=== PATIENT | male | born 1960 | race Caucasian/White ===

== ENCOUNTER → 2018-10-17 | Outpatient (CLI) | payer BC ==
--- NOTE | 2018-10-17 11:54 | PCVCIMAG ---
EXAM: BILATERAL CAROTID DUPLEX INDICATION: Carotid bruit. FINDINGS: Doppler Measurements (centimeters per second): RIGHT: Peak CCA-76, Peak ECA-86, Diastolic ICA-13, Peak ICA-56, ICA/CCA Ratio-0.7. LEFT: Peak CCA-87, Peak ECA-52, Diastolic ICA-25, Peak ICA-66, ICA/CCA Ratio-0.8. RIGHT CAROTID: The carotid bulb has no significant plaque. The proximal internal carotid artery shows no significant stenosis. The common carotid artery shows no significant stenosis. The external carotid artery shows no significant stenosis. LEFT CAROTID: The carotid bulb has no significant plaque. The proximal internal carotid artery shows no significant stenosis. The common carotid artery shows no significant stenosis. The external carotid artery shows no significant stenosis. Antegrade flow in both vertebral arteries. IMPRESSION: No significant stenosis of the right internal carotid artery with no significant plaque. No significant stenosis of the left internal carotid artery with no significant plaque. LOC:[place] [id number]
--- NOTE | 2018-10-17 13:09 | PCVCIMAG ---
APPROVED REPORT Study performed: 10/17/2018 09:19:49 Exam: Stress Echocardiogram Indication: Chest pain on exertion, elevated calcium score>400, strong fam hx early cad Patient Location: Echo lab Stress Nurse: Cheryl Mack RN Status: routine Ht: 5 ft 10 in HR: 68 bpm BP: 122/66 mmHg Rhythm: NSR Procedure The patient underwent an Exercise Stress Test using the Kareem Protocol. Blood pressure, heart rate, and EKG were monitored. An Echocardiogram was performed by automatic equipment technician in four stages in quad fashion. At peak stress, four selected images were obtained and placed side by side with resting images for comparison. Stress Test Details Stress Test: Exercise stress testing was performed using a Kareem protocol. HR Resting HR: 68 bpmMax Heart Rate (APMHR): 162 bpm Max HR Achieved: 142 bpmTarget HR (85% APMHR): 137 bpm % of APMHR: 87 Recovery HR: 85 bpm HR response to stress: Normal HR response to stress BP Resting BP: 122/66 mmHg Max BP: 160/80 mmHg Recovery BP: 138/74 mmHg BP response to stress: Normal blood pressure response to stress. ECG Resting ECG: Sinus Rhythm Stress ECG: Sinus Rhythm ST Change: Normal Arrhythmia: None Recovery ECG: Sinus Rhythm Recovery ST Change: Normal Recovery Arrhythmia: None Clinical Reason for Termination: Maximal effort, Chest pain/Anginal equivalent Stress Symptoms: Chest pain/pressure with exertion Exercise duration: 12 min 59 sec Highest Stage Achieved: Stage 5: 5.0 mph at 18% grade. Exercise capacity: 17 METs Overall Exercise Capacity for Age: Normal Scale: Active Angina Score: None Pre-Stress Echo The resting Echocardiogram showed normal left ventricular contractility with an estimated Ejection Fraction of about >55%. Normal wall motion in all segments on baseline images. Post-Stress Echo The stress Echocardiogram showed abnormal left ventricular contractility with an estimated Ejection Fraction of about 55-60%. Distal septal/anteroapical hypokinesis. Clinical Ischemic clinical response with chest pain on exertion that resolved at rest. Conclusion Clinical Response: Ischemic Exercise Capacity: Superior Stress ECG Response: Non-ischemic Stress Echo Images: Ischemic Chest pain with exertion that increased with increasing work level on treadmill. Chest pain/pressure subsided after 4 minutes of recovery. Other Information Study Quality: Adequate <Conclusion> Chest pain with exertion that increased with increasing work level on treadmill. Chest pain/pressure subsided after 4 minutes of recovery.
== END | disposition home or self-care (01) ==
LOC: PCVCIMAG 09:08
PROVIDERS: ATTEND Internal Medicine
DX: R09.89 Other specified symptoms and signs involving the circulatory and respiratory systems (principal); R93.1 Abnormal findings on diagnostic imaging of heart and coronary circulation; R07.9 Chest pain, unspecified
CPT/HCPCS: 93325; 93351; 93880

== ENCOUNTER → 2019-05-11 | Outpatient (CLI) | payer BC ==
--- NOTE | 2019-05-11 13:27 | PCVCIMAG ---
APPROVED REPORT Indications Bruit LT ARM NUMBNESS AND TINGLING Doppler Spectral Velocity Analysis PSV / EDVPSV / EDV ECA (R) 89 / 17 cm/sECA (L) 68 / 16 cm/s dICA (R) 53 / 21 cm/sdICA (L) 69 / 26 cm/s Nancy (R) 57 / 21 cm/smICA (L) 57 / 22 cm/s pICA (R) 81 / 17 cm/spICA (L) 46 / 13 cm/s Bulb (R) 59 / 17 cm/sBulb (L) 47 / 18 cm/s dCCA (R) 69 / 19 cm/sdCCA (L) 89 / 22 cm/s mCCA (R) 78 / 17 cm/smCCA (L) 89 / 22 cm/s Vert (R) 39 / 12 cm/sVert (L) 36 / 14 cm/s ICA/CCA 0.78 ICA/CCA 1.03 Basic Measurements Blood Pressure: Pulses: Right Left RightLeft Brachial(Sitting) 120/50plNx628/80mmHgTemporal Real Time B-Mode Imaging Vert. (R)AntegradeVert. (L)Antegrade Findings RIGHT CAROTID: The carotid bulb has mild plaque. The proximal internal carotid artery shows <40% stenosis. The common carotid artery shows no significant stenosis. The external carotid artery shows no significant stenosis. LEFT CAROTID: The carotid bulb has mild plaque. The proximal internal carotid artery shows <40% stenosis. The common carotid artery shows no significant stenosis. The external carotid artery shows no significant stenosis. Conclusion <40% stenosis of the right internal carotid artery with mild plaque. <40% stenosis of the left internal carotid artery with mild plaque.
== END | disposition home or self-care (01) ==
LOC: PCVCIMAG 12:35
PROVIDERS: ATTEND Internal Medicine Cardiovascular Disease
DX: I65.23 Occlusion and stenosis of bilateral carotid arteries (principal); E78.00 Pure hypercholesterolemia, unspecified; Z88.8 Allergy status to other drugs, medicaments and biological substances
CPT/HCPCS: 93880

== ENCOUNTER → 2019-09-24 | Outpatient (CLI) | payer BC ==
--- NOTE | 2019-09-24 15:55 | PCVCIMAG ---
APPROVED REPORT Study performed: 09/24/2019 13:32:34 Exam: Stress Echocardiogram Indication: CAD s/p PCI, Hyperlipidemia Patient Location: Echo lab Stress Nurse: Damaris Walker RN Room #: 2 Status: routine Ht: 5 ft 11 in HR: 68 bpm BP: 122/80 mmHg Rhythm: NSR Medical History Medical History: CAD s/p stent, Hyperlipidemia Cardiac Risk Factors: Hyperlipidemia Previous Cardiac Procedures: PCI Pretest Chest Pain Characteristics: No chest pain Exercise History: Physically active Procedure The patient underwent an Exercise Stress Test using the Kareem Protocol. Blood pressure, heart rate, and EKG were monitored. An Echocardiogram was performed by sterile technician in four stages in quad fashion. At peak stress, four selected images were obtained and placed side by side with resting images for comparison. Stress Test Details Stress Test: Exercise stress testing was performed using a Kareem protocol. HR Resting HR: 68 bpmMax Heart Rate (APMHR): 161 bpm Max HR Achieved: 144 bpmTarget HR (85% APMHR): 136 bpm % of APMHR: 89 Recovery HR: 86 bpm HR response to stress: Normal HR response to stress BP Resting BP: 122/80 mmHg Max BP: 156/82 mmHg Recovery BP: 124/76 mmHg BP response to stress: Normal blood pressure response to stress. ECG Resting ECG: Sinus Rhythm Stress ECG: Sinus Rhythm, NSSTT changes ST Change: Non-ischemic Maximum ST Deviation: -0.80 mm Arrhythmia: Rare PVCs,couplets Recovery ECG: Sinus Rhythm Recovery ST Change: Non-ischemic Recovery ST Deviation: -0.40 mm Recovery Arrhythmia: None Clinical Reason for Termination: Maximal effort Stress Symptoms: Fatigue Exercise duration: 13 min 31 sec Highest Stage Achieved: Stage 5: 5.0 mph at 18% grade. Exercise capacity: 17.5 METs Overall Exercise Capacity for Age: Excellent Scale: Active Angina Score: None No complications. Stress ECG Conclusion Salgado Treadmill Score is 17.0 which is Low risk. Pre-Stress Echo The resting Echocardiogram showed normal left ventricular contractility with an estimated Ejection Fraction of about 55-60%. Normal wall motion in all segments on baseline images. Post-Stress Echo The stress Echocardiogram showed normal left ventricular contractility with an estimated Ejection Fraction of about 65-70%. Normal augmentation of wall motion in all segments on post stress images. Clinical No clinical or ECG evidence for ischemia. Conclusion Clinical Response: Non-ischemic Exercise Capacity: Superior Stress ECG Response: Non-ischemic Stress Echo Images: Non-ischemic No clinical, EKG or echocardiographic evidence for ischemia. No echocardiographic evidence for exercise induced ischemia. Normal stress echocardiogram with maximal exercise stress. <Conclusion> No clinical, EKG or echocardiographic evidence for ischemia. No echocardiographic evidence for exercise induced ischemia. Normal stress echocardiogram with maximal exercise stress.
== END | disposition home or self-care (01) ==
LOC: PCVCIMAG 13:21
PROVIDERS: ATTEND Internal Medicine Cardiovascular Disease
DX: I25.10 Atherosclerotic heart disease of native coronary artery without angina pectoris (principal); E78.00 Pure hypercholesterolemia, unspecified; I65.23 Occlusion and stenosis of bilateral carotid arteries; E78.01 Familial hypercholesterolemia; R94.39 Abnormal result of other cardiovascular function study; R07.89 Other chest pain; Z82.49 Family history of ischemic heart disease and other diseases of the circulatory system; Z88.8 Allergy status to other drugs, medicaments and biological substances
CPT/HCPCS: 93325; 93351